=== PATIENT | male | born 1960 | race African-American/Black ===

== ENCOUNTER 2024-08-07 06:40 | Emergency (ER) | payer MEDICARE ==
[~2024-08-07] VITALS: Ht 170.1 cm; Wt 99.8 kg
[~2024-08-07 06:40] MED LIST: GABAPENTIN100 M2 PO; K-TAB20 MEQ PO; LASIX40 MG PO
[2024-08-07] MEDS ORDERED: LASIX40 MG PO (07:51)
[2024-08-07] MEDS ORDERED: NEURONTIN100 MG PO (07:51)
[2024-08-07] MEDS ORDERED: K-TAB20 MEQ PO (07:51)
== END 2024-08-07 08:02 | disposition home or self-care (01) ==
LOC: ED 06:40
DX: Z76.0 Encounter for issue of repeat prescription (principal); I50.9 Heart failure, unspecified; Z91.041 Radiographic dye allergy status; Z98.890 Other specified postprocedural states

== ENCOUNTER 2024-09-03 11:49 | Emergency (ER) | payer MEDICARE ==
[~2024-09-03] VITALS: Ht 170.1 cm; Wt 99.8 kg
[~2024-09-03 11:49] MED LIST changes: +NEURONTIN100 MG PO
[2024-09-03] MEDS ORDERED: LASIX40 MG PO (12:18)
== END 2024-09-03 12:42 | disposition home or self-care (01) ==
LOC: ED 11:49
DX: R60.0 Localized edema (principal); Z76.0 Encounter for issue of repeat prescription; Z91.041 Radiographic dye allergy status; Z79.899 Other long term (current) drug therapy